=== PATIENT | female | born 1955 | race Caucasian/White ===

== ENCOUNTER → 2020-02-08 | Day surgery (SDC) | payer BC ==
[~2020-02-08] MED LIST: AMLODIPINE BESY10 MG PO; BALANCED SALT SOLN (OPTH) 15 ML BTL IO ONE; CRANBERRY CONC1 EAC1 PO; FENTANYL CITRATE/PF 100MCG/2 ML INJ ONE; FUROSEMIDE40 MG PO; LOSARTAN POTAS100 MG PO; METFORMIN HCL500 MG PO; MIDAZOLAM HCL 2 MG/2 ML VIAL ONE; MULTIVITAMINS1 EAC7 PO; OR PHACO EYE KIT ONE; PREOP PHACO EYE KIT ONE; SIMVASTATIN20 MG PO; STEGLATRO15 MG PO; VASCEPA1 GM PO
[2020-02-08 12:15] VITALS: BP 156/88
== END | disposition home or self-care (01) ==
LOC: OR 08:38
PROVIDERS: ATTEND Ophthalmology
DX: H25.12 Age-related nuclear cataract, left eye (principal); E11.9 Type 2 diabetes mellitus without complications; J45.909 Unspecified asthma, uncomplicated; I10 Essential (primary) hypertension; E78.5 Hyperlipidemia, unspecified; K21.9 Gastro-esophageal reflux disease without esophagitis; M19.90 Unspecified osteoarthritis, unspecified site; M54.2 Cervicalgia; M54.9 Dorsalgia, unspecified; Z88.1 Allergy status to other antibiotic agents; Z88.0 Allergy status to penicillin; Z88.2 Allergy status to sulfonamides; Z01.812 Encounter for preprocedural laboratory examination; Z11.59 Encounter for screening for other viral diseases; Z79.84 Long term (current) use of oral hypoglycemic drugs
CPT/HCPCS: 36415; 66984; 82948; J2250; J3010; U0002

== ENCOUNTER → 2020-02-29 | Day surgery (SDC) | payer BC ==
[~2020-02-29] MED LIST changes: -BALANCED SALT SOLN (OPTH) 15 ML BTL IO ONE
[2020-02-29 12:35] VITALS: BP 131/84
== END | disposition home or self-care (01) ==
LOC: OR 09:38
PROVIDERS: ATTEND Ophthalmology
DX: H25.11 Age-related nuclear cataract, right eye (principal); I45.10 Unspecified right bundle-branch block; J45.909 Unspecified asthma, uncomplicated; I10 Essential (primary) hypertension; E78.5 Hyperlipidemia, unspecified; D11.9 Benign neoplasm of major salivary gland, unspecified; Z88.0 Allergy status to penicillin; Z88.2 Allergy status to sulfonamides; Z88.6 Allergy status to analgesic agent; Z88.1 Allergy status to other antibiotic agents; Z91.018 Allergy to other foods; Z01.812 Encounter for preprocedural laboratory examination; Z11.59 Encounter for screening for other viral diseases; Z79.84 Long term (current) use of oral hypoglycemic drugs
CPT/HCPCS: 66984; J2250; J3010; U0002; V2632

== ENCOUNTER 2021-09-29 05:58 | Emergency (ER) | payer BC ==
[~2021-09-29] VITALS: Ht 167.6 cm; Wt 158.8 kg
[~2021-09-29 05:58] MED LIST changes: -FENTANYL CITRATE/PF 100MCG/2 ML INJ ONE; -MIDAZOLAM HCL 2 MG/2 ML VIAL ONE; -OR PHACO EYE KIT ONE; -PREOP PHACO EYE KIT ONE
[2021-09-29] MEDS ORDERED: FAMOTIDINE 20 MG TAB PO ONE (06:15)
[2021-09-29] MEDS ORDERED: PREDNISONE 20 MG TAB PO ONE (06:15)
[2021-09-29] MEDS ORDERED: DIPHENHYDRAMINE HCL 25 MG CAP PO ONE (06:15)
[2021-09-29] MEDS ORDERED: FAMOTIDINE20 MG PO (06:19)
[2021-09-29] MEDS ORDERED: VENTOLIN HFA18 GM INH (06:19)
[2021-09-29] MEDS ORDERED: PREDNISONE50 MG PO (06:19)
== END 2021-09-29 07:00 | disposition home or self-care (01) ==
LOC: ER 06:00
DX: T78.40XA Allergy, unspecified, initial encounter (principal); I10 Essential (primary) hypertension; E11.9 Type 2 diabetes mellitus without complications
CPT/HCPCS: 99284; J7512

== ENCOUNTER 2022-01-27 14:35 | Emergency (ER) | payer BC, OTHER ==
[~2022-01-27] VITALS: Ht 167.6 cm; Wt 158.8 kg
[~2022-01-27 14:35] MED LIST changes: +FAMOTIDINE20 MG PO; +PREDNISONE50 MG PO; +VENTOLIN HFA18 GM INH
[2022-01-27] MEDS ORDERED: HYDROCODONE/APAP 7.5MG-325MG 1 EA TAB PO ONE (15:20)
== END 2022-01-27 17:19 | disposition home or self-care (01) ==
LOC: ER 14:52
DX: S62.396A Other fracture of fifth metacarpal bone, right hand, initial encounter for closed fracture (principal); S02.5XXA Fracture of tooth (traumatic), initial encounter for closed fracture; W01.0XXA Fall on same level from slipping, tripping and stumbling without subsequent striking against object, initial encounter; Y93.01 Activity, walking, marching and hiking; Y92.89 Other specified places as the place of occurrence of the external cause; I10 Essential (primary) hypertension; E11.9 Type 2 diabetes mellitus without complications
CPT/HCPCS: 70450; 72125; 99283

== ENCOUNTER → 2023-03-17 | Day surgery (SDC) | payer MEDICARE, OTHER ==
[2023-03-11 11:54] LABS: BASOPHILS % 0.3 % (0.0-1.0); EOSINOPHILS # (AUTO) 0.2 (0.0-0.4); EOSINOPHILS % 2.5 % (0.0-6.0); HEMOGLOBIN 14.6 g/dL (12.0-16.0); LYMPHOCYTES # (AUTO) 2.7 (1.0-3.2); LYMPHOCYTES % 28.7 % (18.0-39.1); MEAN CORPUSCULAR HEMOGLOBIN 27.5 pg (28-32); MONOCYTES % 10.8 % (4.4-11.3); NEUTROPHILS # (AUTO) 5.4 (2.1-6.9); NEUTROPHILS % 57.5 % (38.7-80.0); PLATELET COUNT 235 x10e3/uL (140-360); RED BLOOD COUNT 5.31 x10e6/uL (3.6-5.1); RED CELL DISTRIBUTION WIDTH 13.3 % (11.7-14.4); WHITE BLOOD COUNT 9.33 x10e3/uL (4.8-10.8)
[~2023-03-17] MED LIST changes: +ALBUTEROL1.25 MG/3 NEB; +ARTHROTEC EC 71 EACH PO; +CLARITIN10 MG PO; +CRANBERRY 12,61 EACH PO; +FENTANYL CITRATE/PF 100MCG/2 ML INJ ONE; +GLYCOPYRROLATE INJ 0.2 MG/ML VIAL ONE; +JARDIANCE10 MG PO; +LACTATED RINGER'S 1,000 ML ONE; +LIDOCAINE HCL 2% LOCAL INJ 5 ML SDV VIAL INJ ONE; +OZEMPIC1 MG/0.71 SC; +PROPOFOL IV EMULSION 10 MG/ML 20 ML VIAL ONE; +PROPOFOL IV EMULSION 50 ML IV ONE; +SPIRIVA18 MCG INH; +SYMBICORT 16010.2 GM INH; +TEZSPIRE210 MG/1.9 INJ; +[UNRECOGNIZED DRUG - OTHER] PO
[2023-03-17 14:13] VITALS: TEMP 97.8
[2023-03-17 14:40] VITALS: BP 137/81; PULSE 64; RESP 16; O2SAT 98
[2023-03-17 15:53] LABS: WBC,FECAL (FECAL LACTOFERRIN) NEGATIVE (NEGATIVE)
== END | disposition home or self-care (01) ==
LOC: OR 12:42
PROVIDERS: ATTEND Internal Medicine Gastroenterology
DX: K29.50 Unspecified chronic gastritis without bleeding (principal); D12.3 Benign neoplasm of transverse colon; K31.7 Polyp of stomach and duodenum; K52.9 Noninfective gastroenteritis and colitis, unspecified; K20.90 Esophagitis, unspecified without bleeding; K31.89 Other diseases of stomach and duodenum; K57.30 Diverticulosis of large intestine without perforation or abscess without bleeding; K62.89 Other specified diseases of anus and rectum; K64.8 Other hemorrhoids; Z71.3 Dietary counseling and surveillance; E11.9 Type 2 diabetes mellitus without complications; I45.2 Bifascicular block; I10 Essential (primary) hypertension; E78.5 Hyperlipidemia, unspecified; J45.909 Unspecified asthma, uncomplicated; G89.29 Other chronic pain; Z88.6 Allergy status to analgesic agent; Z88.1 Allergy status to other antibiotic agents; Z88.0 Allergy status to penicillin; Z88.2 Allergy status to sulfonamides; Z91.09 Other allergy status, other than to drugs and biological substances; Z01.810 Encounter for preprocedural cardiovascular examination; Z01.812 Encounter for preprocedural laboratory examination; Z79.84 Long term (current) use of oral hypoglycemic drugs; Z79.85 Long-term (current) use of injectable non-insulin antidiabetic drugs; Z79.899 Other long term (current) drug therapy; Z68.41 Body mass index [BMI] 40.0-44.9, adult
CPT/HCPCS: 36415 ×2; 43239; 45380; 45385; 82948; 83630; 83993; 85025; 87045; 87177; 87324; 87328; 87449; 88305; 88342; 93005; C9113; J2001; J2704 ×2; J3010; J7121; 45378